=== PATIENT | female | born 1980 | race Caucasian/White ===

== ENCOUNTER 2016-07-01 08:37 | Emergency (ER) | payer OTHER ==
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
--- NOTE | 2016-07-01 09:50 | EDDOCDS ---
Physician Documentation [facility] Name: Neelima Alex Age: 36 yrs Sex: Female : 1980 Arrival Date: 07/01/2016 Time: 08:37 Bed TR7 Private MD: Disposition: 07/01/16 09:33 Discharged to Home/Self Care. Impression: Displaced fracture of proximal phalanx of left little finger. - Condition is Stable. - Discharge Instructions: Finger Fracture. - Medication Reconciliation, Local Pharmacy Hours form. - Follow up: Emergency Department; When: As needed; Reason: Worsening of conditions. Follow up: Private Physician; When: 2 - 3 days; Reason: Wound/Symptom Recheck, Recheck today's complaints, Continuance of care. Follow up: [facility]; When: Call to arrange an appointment; Reason: Wound/Symptom Recheck, Recheck today's complaints, Continuance of care, To establish care. - Problem is new. - Symptoms are unchanged. Historical: - Allergies: Bees; Coconut; - Home Meds: 1. Imitrex 100 mg Oral tab as needed 2. Motrin Oral 600 mg every 6 hours 1830 3. ondansetron HCl 4 mg Oral tab 1 tabs as needed 4. Phenergan 25 mg Rectal supp 1 suppository as needed - PMHx: cervical CA; Kidney stones; Migraines; - PSHx: Hysterectomy; Tonsillectomy; Cesearean Section; port placement; Cholecystectomy; - Social history: Smoking status: Patient states former smoker of tobacco. No barriers to communication noted, The patient speaks fluent [place], Speaks appropriately for age. - Family history: Not pertinent. - : The pt / caregiver states he / she is not on anticoagulants. Home medication list is obtained from the patient. - Exposure Risk Screening:: None identified. 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 4 in. (162.56 cm) (R); 09:03 Body Mass Index 26.95 (71.21 kg, 162.56 cm) kr3 MDM: 09:13 Hand, Complete Ordered. EDMS 09:40 Financial registration complete. mm15 09:44 [facility] Payment Agreement was scanned into [employer] and attached to record. mm15 Signatures: Dispatcher [employer] EDMS Amelia Jacob,RN RN kr3 Narayan Ling mm15 Lisette Antunez RN RN ead Tschudi, Diane, ANGELINA PASylvain dt4 The chart was reviewed and I authenticate all verbal orders and agree with the evaluation and treatment provided.Corrections: (The following items were deleted from the chart) 09:13 09:03 Fingers+XR ordered. EDMS EDMS Attachments: 09:44 [facility] Payment Agreement mm15 MTDD
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
--- NOTE | 2016-07-03 10:50 | EDDOCDS ---
Physician Documentation [facility] Name: Neelima Alex Age: 36 yrs Sex: Female : 1980 Arrival Date: 07/01/2016 Time: 08:37 Bed TR7 Private MD: Disposition: 07/01/16 09:33 Discharged to Home/Self Care. Impression: Displaced fracture of proximal phalanx of left little finger. - Condition is Stable. - Discharge Instructions: Finger Fracture. - Medication Reconciliation, Local Pharmacy Hours form. - Follow up: Emergency Department; When: As needed; Reason: Worsening of conditions. Follow up: Private Physician; When: 2 - 3 days; Reason: Wound/Symptom Recheck, Recheck today's complaints, Continuance of care. Follow up: [facility]; When: Call to arrange an appointment; Reason: Wound/Symptom Recheck, Recheck today's complaints, Continuance of care, To establish care. - Problem is new. - Symptoms are unchanged. Historical: - Allergies: Bees; Coconut; - Home Meds: 1. Imitrex 100 mg Oral tab as needed 2. Motrin Oral 600 mg every 6 hours 1830 3. ondansetron HCl 4 mg Oral tab 1 tabs as needed 4. Phenergan 25 mg Rectal supp 1 suppository as needed - PMHx: cervical CA; Kidney stones; Migraines; - PSHx: Hysterectomy; Tonsillectomy; Cesearean Section; port placement; Cholecystectomy; - Social history: Smoking status: Patient states former smoker of tobacco. No barriers to communication noted, The patient speaks fluent Iranian, Speaks appropriately for age. - Family history: Not pertinent. - : The pt / caregiver states he / she is not on anticoagulants. Home medication list is obtained from the patient. - Exposure Risk Screening:: None identified. 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 4 in. (162.56 cm) (R); 09:03 Body Mass Index 26.95 (71.21 kg, 162.56 cm) kr3 MDM: 09:13 Hand, Complete Ordered. EDMS 09:40 Financial registration complete. mm15 09:44 [facility] Payment Agreement was scanned into [employer] and attached to record. mm15 10:32 [facility] was scanned into [employer] and attached to record. mm15 15:33 T-Sheet-- Draft Copy was scanned into [employer] and attached to record. gb 15:33 Radiology Report was scanned into [employer] and attached to record. gb Signatures: Dispatcher [employer] EDMS Doreen Marks, Reg Reg gb Amelia Jacob,RN RN kr3 Narayan Ling mm15 Lisette AntunezRN RN Archana King PA-C PA-C dt4 The chart was reviewed and I authenticate all verbal orders and agree with the evaluation and treatment provided.Corrections: (The following items were deleted from the chart) 09:13 09:03 Fingers+XR ordered. EDMS EDMS Attachments: 09:44 [facility] Payment Agreement mm15 15:33 T-Sheet-- Draft Copy gb Chart Complete MTDD
--- NOTE | 2016-07-03 10:50 | EDDOCDS ---
Physician Documentation [facility] Name: Neelima Alex Age: 36 yrs Sex: Female : 1980 Arrival Date: 07/01/2016 Time: 08:37 Bed TR7 Private MD: Disposition: 07/01/16 09:33 Discharged to Home/Self Care. Impression: Displaced fracture of proximal phalanx of left little finger. - Condition is Stable. - Discharge Instructions: Finger Fracture. - Medication Reconciliation, Local Pharmacy Hours form. - Follow up: Emergency Department; When: As needed; Reason: Worsening of conditions. Follow up: Private Physician; When: 2 - 3 days; Reason: Wound/Symptom Recheck, Recheck today's complaints, Continuance of care. Follow up: [facility]; When: Call to arrange an appointment; Reason: Wound/Symptom Recheck, Recheck today's complaints, Continuance of care, To establish care. - Problem is new. - Symptoms are unchanged. Historical: - Allergies: Bees; Coconut; - Home Meds: 1. Imitrex 100 mg Oral tab as needed 2. Motrin Oral 600 mg every 6 hours 1830 3. ondansetron HCl 4 mg Oral tab 1 tabs as needed 4. Phenergan 25 mg Rectal supp 1 suppository as needed - PMHx: cervical CA; Kidney stones; Migraines; - PSHx: Hysterectomy; Tonsillectomy; Cesearean Section; port placement; Cholecystectomy; - Social history: Smoking status: Patient states former smoker of tobacco. No barriers to communication noted, The patient speaks fluent Tristanian, Speaks appropriately for age. - Family history: Not pertinent. - : The pt / caregiver states he / she is not on anticoagulants. Home medication list is obtained from the patient. - Exposure Risk Screening:: None identified. 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 4 in. (162.56 cm) (R); 09:03 Body Mass Index 26.95 (71.21 kg, 162.56 cm) kr3 MDM: 09:13 Hand, Complete Ordered. EDMS 09:40 Financial registration complete. mm15 09:44 [facility] Payment Agreement was scanned into [employer] and attached to record. mm15 10:32 [facility] was scanned into [employer] and attached to record. mm15 15:33 T-Sheet-- Draft Copy was scanned into [employer] and attached to record. gb 15:33 Radiology Report was scanned into [employer] and attached to record. gb Signatures: Dispatcher [employer] EDMS Doreen Marks, Reg Reg gb Amelia Jacob,RN RN kr3 Narayan Ling mm15 Lisette AntunezRN RN Archana King PA-C PA-C dt4 The chart was reviewed and I authenticate all verbal orders and agree with the evaluation and treatment provided.Corrections: (The following items were deleted from the chart) 09:13 09:03 Fingers+XR ordered. EDMS EDMS Attachments: 09:44 [facility] Payment Agreement mm15 15:33 T-Sheet-- Draft Copy gb Chart Complete MTDD
== END 2016-07-01 09:48 | disposition home or self-care (01) ==
LOC: M ED 08:37
DX: S62.617A Displaced fracture of proximal phalanx of left little finger, initial encounter for closed fracture (principal); V49.40XA Driver injured in collision with unspecified motor vehicles in traffic accident, initial encounter; Y92.410 Unspecified street and highway as the place of occurrence of the external cause; Y93.89 Activity, other specified; Y99.8 Other external cause status; Z85.41 Personal history of malignant neoplasm of cervix uteri; Z87.442 Personal history of urinary calculi; G43.909 Migraine, unspecified, not intractable, without status migrainosus; Z87.891 Personal history of nicotine dependence; Z79.899 Other long term (current) drug therapy; Z91.030 Bee allergy status; Z91.018 Allergy to other foods